=== PATIENT | male | born 1985 | race Caucasian/White ===

== ENCOUNTER 2025-05-26 21:18 | Emergency (ER) | payer SELFPAY ==
[2025-05-26 21:22] VITALS: BP 172/90; PULSE 93; TEMP 36.9; O2SAT 99; BMI 33.0
--- NOTE | 2025-05-26 21:27 | XR_ITS ---
[place] [id number] Patient Name: ELIZABETH BORRERO MRN: [id number] date: 1985 Sex: M Assigned Patient Location: ED.MAIN Current Patient Location: Accession/Order Number: [id number] Exam Date: 05/26/2025 22:43 Report Date: 05/26/2025 22:45 At the request of: ANTHONY ARNDT Procedure: XR knee RT 3V 3 views right knee plain film COMPARISON: None HISTORY: Acute right knee pain. No injury ACUTE FINDINGS: No acute findings DEGENERATIVE CHANGE: Medial lateral spurring small intra-articular bodies. Mild joint space narrowing medially. SOFT TISSUE FINDINGS: Unremarkable JOINT EFFUSION: Moderate joint effusion POSTOP CHANGES: None BONE MINERALIZATION: Adequate XR/XR knee RT 3V IMPRESSION: Moderate degeneration. Greatest in medial compartment. Moderate joint effusion. Small intra-articular bodies. Impression dictated by: Darien Hernández M.D. 05/26/2025 10:45 PM [facility] Electron[facility] authenticated by: [id number] Y Date: 05/26/2025 22:45
--- NOTE | 2025-05-26 21:28 | ED_ITS ---
HPI HPI - General Adult General Chief complaint: Extremity Problem, Nontraumatic Stated complaint: Knee Pain Time Seen by Provider: 05/26/25 21:20 History of Present Illness HPI narrative: 39-year-old male presents with chief complaint of right knee pain. Patient states his knee often goes out of place . States he has a history of an ACL tear and injury many years ago from football. He has never had a fixed. Right knee is swollen does not appear to be dislocated. He is ambulating. He does have soft tissue swelling noted. He states it popped out of place 2 days ago when he put it back in. He states he cannot afford to take off work to have it repaired. pt denies seeing or an orthopedic physician. Related Data Previous Rx's �Medication �Instructions �Recorded ibuprofen 800 mg tablet 800 mg PO Q8H PRN pain #20 c aps 05/26/25 Allergies Allergy/AdvReac Type Severity Reaction Status Date / Time No Known Drug Allergies Allergy Verified 05/26/25 21:29 Opioid HPI Opioid Management Most Recent Opioid Data: Last Pain Scale 10 05/26/25, 21:39 Last MAR Pain Assessment 05/26/25, 21:39 Review of Systems ROS Status of ROS 10 or more systems reviewed and unremark able except as noted in history and below PFSH PFSH Social History Little interest or pleasure in doing things: not at all Feeling down, depressed, or hopeless: not at all Exam Narrative Exam Narrative: All Systems are negative except as noted/marked.All systems reviewed and otherwise negative Nurses note and vital signs reviewed and patient is not hypoxic. General: The patient appears well and in no apparent distress. Patient is resting comfortably on cart. Skin: Warm, dry, no pallor noted. There is no rash noted. Head: Normocephalic, atraumatic Eye: Normal conjunctiva, no drainage, EOMI. PERRL Cardiovascular: Regular Rate and Rhythm Musculoskeletal:, Soft tissue swelling, full range of motion, no laxity, the patient has no evidence of calf tenderness, no pitting edema, symmetrical pulses noted bilaterally Neurological: A&O x4, normal speech Psychiatric: Cooperative Constitutional Vital Signs, click to edit/add: Last Vital Signs Temp 98.4 F 05/26/25 21:22 Pulse 93 H 05/26/25 21:22 Resp 16 05/26/25 21:22 BP 172/90 H 05/26/25 21:22 Pulse Ox 99 05/26/25 21:22 O2 Del Method Room Air 05/26/25 21:22 Course Vital Signs Vital signs: Vital Signs Temperature 98.4 F 05/26/25 21: Pulse Rate 93 H 05/26/25 21:22 Respiratory Rate 16 05/26/25 21:22 Blood Pressure 172/90 H 05/26/25 21:22 Pulse Oximetry 99 05/26/25 21:22 Oxygen Delivery Method Room Air 05/26/25 21:22 Temperature 98.4 F 05/26/25 21:22 Pulse Rate 93 H 05/26/25 21:22 Respiratory Rate 16 05/26/25 21:22 Blood Pressure 172/90 H 05/26/25 21:22 Pulse Oximetry 99 05/26/25 21:22 Oxygen Delivery Method Room Air 05/26/25 21:22 Medical Decision Making MDM Narrative Medical decision making narrative: 39-year-old male presents with chief complaint of right knee pain. Patient states his knee often goes out of place . States he has a history of an ACL tear and injury many years ago from football. He has never had a fixed. Right knee is swollen does not appear to be dislocated. He is ambulating. He does have soft tissue swelling noted. He states it popped out of place 2 days ago when he put it back in. He states he cannot afford to take off work to have it repaired. pt denies seeing or an orthopedic physician. patient transfer of care to Dr Mckee at 2200. xrays reviewed and patient referred to ortho Differential Diagnosis Differential Diagnosis: knee pain, sprain Medical Records Medical records reviewed: Yes I reviewed the patient's medical records Imaging Data knee : Attestation: I have reviewed the pertinent imaging results. Radiologist's impression: ITS Impressions Knee X-Ray 05/26/25 21:27 IMPRESSION: Moderate degeneration. Greatest in medial compartment. Moderate joint effusion. Small intra-articular bodies. Impression dictated by: Darien Hernández M.D. 05/26/2025 10:45 PM Dictation Location: [place] [address] Electronically authenticated by: [id number] Y Date: 05/26/2025 22:45 knee: Radiologist's impression: ITS Impressions Knee X-Ray 05/26/25 21:27 IMPRESSION: Moderate degeneration. Greatest in medial compartment. Moderate joint effusion. Small intra-articular bodies. Impression dictated by: Darien Hernández M.D. 05/26/2025 10:45 PM Dictation Location: [place] [address] Electronically authenticated by: [id number] Y Date: 05/26/2025 22:45 Discharge Plan Discharge Chief Complaint: Extremity Problem, Nontraumatic Clinical Impression: Knee pain, right Patient Disposition: Home, Self-Care Time of Disposition Decision: 21:44 Condition: Good Mode of Transportation: Private Vehicle Prescriptions / Home Meds: New ibuprofen 800 mg tablet 800 mg PO Q8H PRN (Reason: pain) Qty: 20 0RF Print Language: Mongolian Instructions: Knee Pain (ED), P.R.I.C.E. Treatment (ED) Referrals: Nikolai Ty DO [Physician, Orthopedics] - 1 week Discharge Date/Time: 05/26/25 22:41
[2025-05-26] MEDS: KETOROLAC TROMETHAMINE 60 MG/2 ML VIAL IM (21:39)
== END 2025-05-26 22:41 | disposition home or self-care (01) ==
PROVIDERS: Emergency Provider Internal Medicine
DX: M25.561 Pain in right knee (principal)
CPT/HCPCS: 73562; 96372; 99284; J1885